=== PATIENT | female | born 1980 | race Caucasian/White ===

== ENCOUNTER 2022-04-15 08:56 | Outpatient (CLI) | payer BC, SELFPAY ==
--- NOTE | 2022-04-15 09:15 | CRLHL7_ITS ---
For Patients: As a result of the Century Cures Act, medical imaging exams and procedure reports are released immediately into your electronic medical record. You may view this report before your referring provider. If you have questions, please contact your health care provider. Indication: CHRONIC LEFT HIP PAIN Procedure : Informed consent was obtained. The site was marked. Time-out was performed. The skin of the left hip was cleansed with ChloraPrep. A sterile drape was placed. 8 cc of 1 percent lidocaine was administered for superficial anesthesia. Subsequently a 22 gauge spinal needle was introduced into the left hip joint under intermittent fluoroscopic guidance. Injection of 2 cc nonionic Omnipaque 240 contrast confirmed intra-articular location. Subsequently 11 cc of dilute gadolinium were injected. The needle was removed and hemostasis achieved with direct pressure. A dressing was placed. The patient tolerated the procedure well without immediate complication and was immediately sent to MRI for imaging. Total fluoroscopy time 28 seconds. Impression: Successful fluoroscopically guided left hip arthrogram for MRI. Dictated by Mason Anthony MD @ 04/15/2022 12:18:26 PM (Electronically Signed)
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
== END 2022-04-15 08:57 | disposition home or self-care (01) ==
LOC: RAD 08:59
PROVIDERS: PCP Family Medicine; Visit Provider Family Medicine
DX: M25.552 Pain in left hip (principal); S73.102A Unspecified sprain of left hip, initial encounter; M25.852 Other specified joint disorders, left hip; M53.3 Sacrococcygeal disorders, not elsewhere classified; Z96.642 Presence of left artificial hip joint
CPT/HCPCS: 27093; 73525; 73722; A9575; Q9966

== ENCOUNTER 2022-12-28 11:56 | Outpatient (CLI) | payer BC, SELFPAY ==
--- OUTSIDE RECORDS SUMMARY | 2022-12-31 14:38 | XMS_ITS | Continuity of Care Document ---
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 Name Role Phone Rashid Aguirre MD Unavailable Unavailable Allergies, Adverse Reactions, Alerts Substance Reaction Status Criticality Sulfa (Sulfonamide Antibiotics) Active No Information morphine Active No Information Medications Medication Instructions Dosage Effective Dates (start - stop) Status Comments trazodone 150 mg tablet take 1 tablet by oral route every day at bedtime - Active EFFEXOR XR (unknown strength) take 1 capsule by oral route every day with food Not Available - Active PAXIL (unknown strength) take 1 tablet by oral route every day Not Available - Active lorazepam 0.5 mg tablet Take as needed - Active Procedures Procedure Date Office/Outpatient Visit, New Advance Directives Directive Yes / No Effective Date File Name No Information Encounters Encounter Description Practice Location Reason(s) For Visit Diagnoses Date Provider Providers Copied on Encounter Office/Outpa tient Visit, New [facility], [address], [place], [address], [place] tel:[phone] [facility], hip pain (chief complaint) Pain in hip [address] Carla Mike. [facility] [address], [place], [address], [place]. tel:[phone] Referring Provider: Rashid Mcgarry, [facility] [address], [place], [address]. tel:[phone] Family History Family Member Type Diagnosis Age At Onset Problem (finding) No family hist ory of Rheumatoid arthritis Payers Payer name Insurance type Covered libertarian ID Bianca markham(s) [facility] [id number] Social History Type Description Quantity Date Captured Comments Alcohol Use Details 2 drinks monthly 9 Caffeine Use Details Tobacco Use Status Occasional cigarette smoker Smoking Status Heavy tobacco smoker Smoking Tobacco Use Details Cigarette: No Details Available Cigarette: 10 Cigarettes per day Sex Female Vital Signs Date / Time: Height Weight BMI Pulse Rate Blood Pressure Temperature Respiratory Rate Body Surface Area Head Circumference Head Circ. Percentile Wt./Jarrett. Percentile BMI percentile Pulse Ox Inhaled Ox 2:57 PM 65.35 in 67.132 kg (148.00 lbs) 24.3 6 kg/m eter (2) 122/84 mm[Hg] Chief Complaint And Reason For Visit From encounter dated '02/20/2019 14:45'. hip pain (chief complaint) Reason For Referral Reason For Referral No Information Plan Of Treatment Date Type Action Status Goal Tobacco cessation counseling completed History Of Present Illness Encounter Date Complaint History Of Prese nt Illness hip pain Functional Status Date Functional Assessmen t Pain Score 9/10 Instructions Date Instruction Additional Infor mation No Information Assessments Type Assessment Date assessment Pain in hip Patient Care Teams Name Effective Dates (start - stop) Status Members No Information
== END 2022-12-28 11:57 | disposition home or self-care (01) ==
LOC: NFLDREF 12-31 14:37
PROVIDERS: PCP Family Medicine; Referring Provider Family Medicine; Visit Provider Registered Nurse
DX: R30.0 Dysuria (principal); N39.0 Urinary tract infection, site not specified
CPT/HCPCS: 87086

== ENCOUNTER 2024-07-01 11:48 | Outpatient (CLI) | payer BC, SELFPAY | END 2024-07-01 11:49 | disposition home or self-care (01) | LOC: NFLDREF 07-04 07:02 | PROVIDERS: PCP Family Medicine; Referring Provider Family Medicine; Visit Provider Family Medicine | DX: R35.0 Frequency of micturition (principal); N39.0 Urinary tract infection, site not specified; R39.9 Unspecified symptoms and signs involving the genitourinary system | CPT/HCPCS: 87086 ==